=== PATIENT | female | born 1960 | race Caucasian/White ===

== ENCOUNTER 2016-07-26 15:52 | Emergency (ER) | payer OTHER ==
[~2016-07-26] VITALS: Ht 172.7 cm; Wt 81.2 kg
--- NOTE | ~2016-07-26 | EKG ---
[address] [place] [address] ELECTROCARDIOGRAM REPORT Name: JENNY ALLEN Room #: DEP HALIMA Ragland#: [id number] Admission: 07/26/16 Attend Phys: Discharge: 07/26/16 Date of : 62 Report #: [id number] THIS REPORT FOR: //name// [facility] ED Test Date: 2016-07-26 Test Time: 16:09:48 Pat Name: JENNY ALLEN Department: Room: Gender: F Waste Collector: ammon blankenship : 1960 Requested By: Darshana South Order Number: [id number] MD: Laz Aguero Measurements Intervals [place] Rate: 89 P: 62 IN: 150 QRS: 33 QRSD: 101 T: 43 QT: 365 QTc: 445 Interpretive Statements Sinus rhythm Nonspecific ST segment abnormality Compared to ECG 05/12/2014 14:45:[address] segment abnormality is now present Electronically Signed On 07-27-2016 10:18:25 CDT by Laz Aguero [email or web address] <ELECTRONICALLY SIGNED> By: Laz Aguero MD, [facility] 07/27/16 1018 1609 160 Laz Aguero MD, FACC /EPI
[~2016-07-26 15:52] MED LIST: B COMPLEX-VITA1 EACH PO; BENTYL 10 MG CA10 MG PO; DOXYCYCLINE 10100 M1 PO; ESTRADIOL 1 MG T1 M1 VAG; FIRST-TESTOSTER60 G1 TD; FISH OIL + D31 EACH; MECLIZINE HCL25 M1 PO; METFORMIN HCL500 M2 PO; MULTIVITAMINS1 EAC7 PO; NEXIUM40 M2 PO; NORCO 5-325 TA1 EACH PO; PHENERGAN 25 MG25 M1 PO; PHENERGAN50 MG RC; PROGESTERONE100 MG TOP; VITAMIN E100 UNI2 PO; ZOFRAN ODT4 MG PO
[2016-07-26 16:10] LABS: ABSOLUTE NEUTROPHILS 14.7 thou/uL (1.4-8.2); BASOPHILS 0.6 % (0.0-2.0); HEMATOCRIT 40.5 % (37.0-47.0); HEMOGLOBIN 13.4 gm/dL (12.0-15.0); MCH 29.7 pg (26.0-34.0); MONOCYTES 3.4 % (1.0-8.0); PLATELET COUNT 315 thou/uL (150-400); RDW 13.4 % (10.5-14.5); WBC 17.1 thou/uL (4.0-11.0)
[2016-07-26 16:11] LABS: MANUAL DIFF NO
[2016-07-26 16:19] LABS: ANION GAP 13 mmol/L (7-16); BUN 21 mg/dL (7-18); CALCIUM 9.3 mg/dL (8.5-10.1); CHLORIDE 107 mmol/L (98-107); CO2 20 mmol/L (21-32); CREATININE 1.1 mg/dL (0.6-1.0); GLUCOSE 150 mg/dL (74-106); POTASSIUM 3.9 mmol/L (3.5-5.1); SODIUM 140 mmol/L (136-145)
[2016-07-26 16:28] LABS: TROPONIN-I < 0.04 ng/mL (<0.04-0.07)
[2016-07-26 16:40] VITALS: BP 132/80
== END 2016-07-26 17:19 | disposition home or self-care (01) ==
LOC: ER 15:52
PROVIDERS: Emergency Medicine
DX: R06.00 Dyspnea, unspecified (principal); F41.9 Anxiety disorder, unspecified; Z90.710 Acquired absence of both cervix and uterus; Z90.721 Acquired absence of ovaries, unilateral; Z88.5 Allergy status to narcotic agent; Z88.1 Allergy status to other antibiotic agents; Z88.2 Allergy status to sulfonamides; Z88.0 Allergy status to penicillin

== ENCOUNTER 2016-10-09 02:21 | Emergency (ER) | payer OTHER ==
[2016-10-09 03:32] VITALS: BP 151/79
== END 2016-10-09 07:58 | disposition home or self-care (01) ==
LOC: ER 02:21
DX: G43.909 Migraine, unspecified, not intractable, without status migrainosus (principal); Z90.721 Acquired absence of ovaries, unilateral; Z98.890 Other specified postprocedural states; Z88.0 Allergy status to penicillin; Z88.1 Allergy status to other antibiotic agents; Z88.2 Allergy status to sulfonamides; Z88.5 Allergy status to narcotic agent

== ENCOUNTER → 2019-09-06 | Outpatient (CLI) | payer OTHER | LOC: LAB 08:00 | PROVIDERS: ATTEND Anesthesiology | DX: Z01.812 Encounter for preprocedural laboratory examination (principal); Z11.59 Encounter for screening for other viral diseases ==